=== PATIENT | male | born 1985 | race Two or more races ===

== ENCOUNTER 2019-01-02 10:01 | Inpatient (IN) | payer OTHER ==
[2019-01-02 11:05] VITALS: BMI 25.5
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
[2019-01-02] MEDS ORDERED: MELATONIN 5 MG TABLETS PO PRN (11:39)
[2019-01-02] MEDS ORDERED: BISMUTH SUBSALICYLATE 524 MG/30 ML UD PO PRN (11:39)
[2019-01-02] MEDS ORDERED: chlordiazePOXIDE HCL 25 MG CAPSULE PO PRN (11:39)
[2019-01-02] MEDS ORDERED: MAG HYDROX/AL HYDROX/SIMETH 30 ML UNIT-DOSE CUP PO PRN (11:39)
[2019-01-02] MEDS ORDERED: NICOTINE POLACRILEX 4 MG GUM BUC PRN (11:39)
[2019-01-02] MEDS ORDERED: MAGNESIUM CITRATE 300 ML BOTTLE PO PRN (11:39)
[2019-01-02] MEDS ORDERED: QUEtiapine FUMARATE 50 MG TABLET PO PRN (11:39)
[2019-01-02] MEDS ORDERED: MENTHOL/PHENOL 1 EACH UD MM PRN (11:39)
[2019-01-02] MEDS ORDERED: ACETAMINOPHEN 325 MG TABLET (FP) PO PRN ×2 (11:39)
[2019-01-02] MEDS ORDERED: MAGNESIUM HYDROX 2400MG/30ML ORAL SUSPENSION 30 ML CUP PO PRN (11:39)
[2019-01-02] MEDS ORDERED: ALBUTEROL SO4 8 GM HFA INHALER IH PRN (11:40)
[2019-01-02] MEDS ORDERED: chlordiazePOXIDE HCL 25 MG CAPSULE PO ONE (12:30)
[2019-01-02] MEDS ORDERED: METHADONE HCL 10 MG TABLET (FOR DETOX USE ONLY) PO ONE (12:30)
[2019-01-02] MEDS: METHOCARBAMOL 500 MG TABLET PO PRN ×2 (12:51→22:06)
[2019-01-02] MEDS: BUDESONIDE/FORMETEROL FUMARATE 80/4.5 mcg INHALER IH SCH ×2 (12:55→22:05)
[2019-01-02] MEDS: chlordiazePOXIDE HCL 25 MG CAPSULE PO SCH ×2 (17:42→22:05)
[2019-01-02] MEDS: THIAMINE HCL 100 MG TABLET (FP) PO SCH (22:05)
[2019-01-03] MEDS: cloNIDine HCL 0.1 MG TABLET PO PRN ×2 (01:00→18:58)
[2019-01-03] MEDS: chlordiazePOXIDE HCL 25 MG CAPSULE PO SCH ×4 (05:38→22:20)
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
[2019-01-03] MEDS ORDERED: METHADONE HCL 5 MG TABLET (FOR DETOX USE ONLY) ONE (08:59)
[2019-01-03] MEDS ORDERED: METHADONE HCL 10 MG TABLET (FOR DETOX USE ONLY) ONE (08:59)
[2019-01-03] MEDS ORDERED: METHADONE (DETOX) 20 MG, METHADONE (DETOX) 5 MG PO ONE (10:00)
[2019-01-03] MEDS: BUDESONIDE/FORMETEROL FUMARATE 80/4.5 mcg INHALER IH SCH ×2 (10:16→22:20)
[2019-01-03] MEDS: METHOCARBAMOL 500 MG TABLET PO PRN ×2 (10:17→17:05)
[2019-01-03] MEDS: PRENATAL VITAMINS W/ FOLIC ACID TABLET (FP) PO SCH (10:17)
[2019-01-03 11:00] LABS: HEMATOCRIT 37.1 % (35.4-49); HEMOGLOBIN 12.6 GM/dL (11.7-16.9); MCH 29.9 pg (25.7-33.7); MCHC 33.9 g/dl (32.0-35.9); MEAN CELL VOLUME 88.3 fl (80-96); MEAN PLT VOLUME 9.2 fl (7.5-11.1); PLATELET COUNT 318 K/MM3 (134-434); RBC 4.21 M/mm3 (4.00-5.60); RDW 12.7 % (11.9-15.9); WHITE BLOOD COUNT 8.9 K/mm3 (4.0-10.0)
[2019-01-03 11:11] LABS: ALBUMIN 3.2 g/dl (3.4-5.0); BILIRUBIN,TOTAL 0.4 mg/dL (0.2-1); BLOOD UREA NITROGEN 9.2 mg/dL (7-18); CALCIUM 9.1 mg/dL (8.5-10.1); CREATININE 0.8 mg/dL (0.55-1.3); POTASSIUM 3.7 mmol/L (3.5-5.1); TOT PROT 6.6 g/dl (6.4-8.2)
--- NOTE | 2019-01-03 11:13 | PN ---
S CIWA - CIWA Score Nausea/Vomitin-Mild Nausea/No Vomiting Muscle Tremors: 4-Moderate,w/Arms Extend Anxiety: 3 Agitation: 2 Paroxysmal Sweats: 2 Orientation: 0-Oriented Tacttile Disturbances: 1-Very Mild Itch/Numbness Auditory Disturbances: 0-None Visual Disturbances: 0-None Headache: 0-None Present CIWA-Ar Total Score: 13 [facility] COWS - Scale Resting Pulse: 0= [place] 80 or Below Sweatin= Chills/Flushing Restless Observation: 0= Sits Still Pupil Size: 1= Pupils >than Normal Bone or Joint Aches: 1= Mild Discomfort Runny Nose/ Eye Tearin= Nasal Congestion GI Upset > 30mins: 1= Stomach Cramp Tremor Observation of Outstretched Hands: 2= Slight Tremor Visible Yawning Observation: 1= 1-2x During Session Anxiety or Irritability: 2=Irritable/Anxious Goose Flesh Skin: 3=Piloerection COWS Score: 13 S Progress Note (SOAP) Subjective: 33 years old male admitted on 01/02/19 for alcohol benzo opiate withdrawal sx management treated with librium and methadone detox regimen patient tolerated wel ate breakfast resting on bed feeling tired limited conversation with staff Objective: 01/03/19 11:12 Vital Signs Temperature 96.8 F L 01/03/19 09:43 Pulse Rate 78 01/03/19 09:43 Respiratory Rate 18 01/03/19 09:43 Blood Pressure 130/82 01/03/19 09:43 O2 Sat by Pulse Oximetry (%) Laboratory Last Values WBC 8.9 K/mm3 (4.0-10.0) 01/03/19 07:40 RBC 4.21 M/mm3 (4.00-5.60) 01/03/19 07:40 Hgb 12.6 GM/dL (11.7-16.9) 01/03/19 07:40 Hct 37.1 % (35.4-49) 01/03/19 07:40 MCV 88.3 fl (80-96) 01/03/19 07:40 MCH 29.9 pg (25.7-33.7) 01/03/19 07:40 MCHC 33.9 g/dl (32.0-35.9) 01/03/19 07:40 RDW 12.7 % (11.9-15.9) 01/03/19 07:40 Plt Count 318 K/MM3 (134-434) 01/03/19 07:40 MPV 9.2 fl (7.5-11.1) 01/03/19 07:40 Sodium 139 mmol/L (136-145) 01/03/19 07:40 Potassium 3.7 mmol/L (3.5-5.1) 01/03/19 07:40 Chloride 106 mmol/L (98-107) 01/03/19 07:40 Carbon Dioxide 25 mmol/L (21-32) 01/03/19 07:40 Anion Gap 7 MMOL/L (8-16) L 01/03/19 07:40 BUN 9.2 mg/dL (7-18) 01/03/19 07:40 Creatinine 0.8 mg/dL (0.55-1.3) 01/03/19 07:40 Est GFR (CKD-EPI)AfAm 134.14 01/03/19 07:40 Est GFR (CKD-EPI)NonAf 115.74 01/03/19 07:40 Random Glucose 118 mg/dL (74-106) H 01/03/19 07:40 Calcium 9.1 mg/dL (8.5-10.1) 01/03/19 07:40 Total Bilirubin 0.4 mg/dL (0.2-1) 01/03/19 07:40 AST 10 U/L (15-37) L 01/03/19 07:40 ALT 19 U/L (13-61) 01/03/19 07:40 Alkaline Phosphatase 81 U/L (45-117) 01/03/19 07:40 Total Protein 6.6 g/dl (6.4-8.2) 01/03/19 07:40 Albumin 3.2 g/dl (3.4-5.0) L 01/03/19 07:40 lab noted Assessment: 01/03/19 11:12 alcohol benzo opiate withdrawal sx Plan: continue librium and methadone detox regimen
[2019-01-03] MEDS: IBUPROFEN 400 MG TABLET (FP) PO PRN ×2 (16:52→22:56)
[2019-01-03] MEDS ORDERED: SUVOREXANT 10 MG TABLET PO PRN (22:00)
[2019-01-03] MEDS: THIAMINE HCL 100 MG TABLET (FP) PO SCH (22:20)
[2019-01-04] MEDS: METHOCARBAMOL 500 MG TABLET PO PRN ×2 (05:46→12:30)
[2019-01-04] MEDS: chlordiazePOXIDE HCL 25 MG CAPSULE PO SCH ×2 (05:47→10:02)
[2019-01-04] MEDS ORDERED: METHADONE HCL 10 MG TABLET (FOR DETOX USE ONLY) PO ONE (10:00)
[2019-01-04] MEDS: BUDESONIDE/FORMETEROL FUMARATE 80/4.5 mcg INHALER IH SCH (10:01)
[2019-01-04] MEDS: PRENATAL VITAMINS W/ FOLIC ACID TABLET (FP) PO SCH (10:02)
[2019-01-04] MEDS: IBUPROFEN 400 MG TABLET (FP) PO PRN (12:30)
--- NOTE | 2019-01-04 13:03 | PN ---
[facility] CIWA - CIWA Score Nausea/Vomitin-Mild Nausea/No Vomiting Muscle Tremors: 3 Anxiety: 3 Agitation: 1-Slight > Activity Paroxysmal Sweats: 2 Orientation: 1-Uncertain about Date Tacttile Disturbances: 0-None Auditory Disturbances: 0-None Visual Disturbances: 0-None Headache: 0-None Present CIWA-Ar Total Score: 11 S COWS - Scale Resting Pulse: 0= [place] 80 or Below Sweatin= Chills/Flushing Restless Observation: 0= Sits Still Pupil Size: 1= Pupils >than Normal Bone or Joint Aches: 2= Severe Diffuse Aches Runny Nose/ Eye Tearin= Nasal Congestion GI Upset > 30mins: 2= Nausea/Diarrhea (no diarrhea) Tremor Observation of Outstretched Hands: 2= Slight Tremor Visible Yawning Observation: 0= None Anxiety or Irritability: 2=Irritable/Anxious Goose Flesh Skin: 0=Smooth Skin COWS Score: 11 [facility] Progress Note (SOAP) Subjective: 33 years old male admitted on 01/02/19 for alcohol benzo opiate withdrawal sx management treated with librium and methadone detox regimen
--- NOTE | 2019-01-04 13:07 | DS ---
[facility] Detox Discharge Summary Admission Date: 01/02/19 Discharge Date: 01/04/19 - History Present History: Alcohol Dependence, Opioid Dependence, Sedative Dependence Additional Comments: 33 years old male admitted on 01/02/19 for alcohol benzo opiate withdrawal sx management treated with librium and methadone detox regimen PATIENT IS ALERT ORIENTED X 3 SPEECH CLEARLY COHERENTLY PATIENT INSISTS TO LEAVE THE DETOX UNIT WITH A FEMALE PEER REFUSES CIWA COWS REFUSE EXIST PHYSICAL EXAMINATION - Physical Exam Results Vital Signs: Vital Signs Temperature 97.1 F L 01/04/19 09:42 Pulse Rate 64 01/04/19 09:42 Respiratory Rate 18 01/04/19 09:42 Blood Pressure 119/70 01/04/19 09:42 O2 Sat by Pulse Oximetry (%) Pertinent Admission Physical Exam Findings: ALCOHOL BENZO OPIATE WITHDRAWAL SX Laboratory Last Values WBC 8.9 K/mm3 (4.0-10.0) 01/03/19 07:40 RBC 4.21 M/mm3 (4.00-5.60) 01/03/19 07:40 Hgb 12.6 GM/dL (11.7-16.9) 01/03/19 07:40 Hct 37.1 % (35.4-49) 01/03/19 07:40 MCV 88.3 fl (80-96) 01/03/19 07:40 MCH 29.9 pg (25.7-33.7) 01/03/19 07:40 MCHC 33.9 g/dl (32.0-35.9) 01/03/19 07:40 RDW 12.7 % (11.9-15.9) 01/03/19 07:40 Plt Count 318 K/MM3 (134-434) 01/03/19 07:40 MPV 9.2 fl (7.5-11.1) 01/03/19 07:40 Sodium 139 mmol/L (136-145) 01/03/19 07:40 Potassium 3.7 mmol/L (3.5-5.1) 01/03/19 07:40 Chloride 106 mmol/L (98-107) 01/03/19 07:40 Carbon Dioxide 25 mmol/L (21-32) 01/03/19 07:40 Anion Gap 7 MMOL/L (8-16) L 01/03/19 07:40 BUN 9.2 mg/dL (7-18) 01/03/19 07:40 Creatinine 0.8 mg/dL (0.55-1.3) 01/03/19 07:40 Est GFR (CKD-EPI)AfAm 134.14 01/03/19 07:40 Est GFR (CKD-EPI)NonAf 115.74 01/03/19 07:40 Random Glucose 118 mg/dL (74-106) H 01/03/19 07:40 Calcium 9.1 mg/dL (8.5-10.1) 01/03/19 07:40 Total Bilirubin 0.4 mg/dL (0.2-1) 01/03/19 07:40 AST 10 U/L (15-37) L 01/03/19 07:40 ALT 19 U/L (13-61) 01/03/19 07:40 Alkaline Phosphatase 81 U/L (45-117) 01/03/19 07:40 Total Protein 6.6 g/dl (6.4-8.2) 01/03/19 07:40 Albumin 3.2 g/dl (3.4-5.0) L 01/03/19 07:40 RPR Titer Nonreactive (NONREACTIVE) 01/03/19 07:40 LAB NOTED - Treatment Hospital Course: Detox Protocol Followed, Responded well Patient has Accepted a Rehab Referral to: MEDICATION ASISSTED TREATEMENT - Medication Discharge Medications: Ambulatory Orders Ibuprofen [Motrin -] 400 mg PO BID PRN 12/31/18 Methocarbamol [Robaxin -] 500 mg PO BID PRN 12/31/18 Albuterol Sulfate Inhaler - [Ventolin Hfa Inhaler -] 2 inh PO Q4H PRN 01/02/19 Budesonide/Formeterol Fumarate [SYMBICORT 80/4.5mcg -] 1 inh PO BID 01/02/19 Naloxone HCl [Narcan] 4 mg NS ASDIR PRN #1 spray 01/04/19 - Diagnosis (1) Alcohol dependence with withdrawal, uncomplicated Current Visit: Yes Status: Acute (2) Opioid dependence with withdrawal Current Visit: Yes Status: Acute (3) Sedative hypnotic or anxiolytic dependence Current Visit: Yes Status: Acute (4) Substance induced mood disorder Current Visit: Yes Status: Suspected (5) Asthma Current Visit: Yes Status: Chronic Qualifiers: Asthma severity: mild Asthma persistence: intermittent Asthma complication type: uncomplicated Qualified Code(s): J45.20 - Mild intermittent asthma, uncomplicated (6) Nicotine dependence Current Visit: Yes Status: Acute Qualifiers: Nicotine product type: cigarettes Substance use status: in withdrawal Qualified Code(s): F17.213 - Nicotine dependence, cigarettes, with withdrawal - AMA Did Patient Leave Against Medical Advice: Yes
[2019-01-04 13:09] VITALS: BP 121/81; PULSE 76; TEMP 97
[2019-01-05] MEDS ORDERED: chlordiazePOXIDE HCL 10 MG CAPSULE PO PRN
[2019-01-05] MEDS ORDERED: chlordiazePOXIDE HCL 10 MG CAPSULE PO SCH (05:00)
[2019-01-05] MEDS ORDERED: METHADONE (DETOX) 10 MG, METHADONE (DETOX) 5 MG PO ONE (10:00)
[2019-01-06] MEDS ORDERED: chlordiazePOXIDE HCL 10 MG CAPSULE PO SCH (05:00)
[2019-01-06] MEDS ORDERED: METHADONE HCL 10 MG TABLET (FOR DETOX USE ONLY) PO ONE (10:00)
[2019-01-07] MEDS ORDERED: chlordiazePOXIDE HCL 10 MG CAPSULE PO ONE (05:00)
[2019-01-07] MEDS ORDERED: METHADONE HCL 5 MG TABLET (FOR DETOX USE ONLY) PO ONE (06:00)
== END 2019-01-04 13:31 | disposition left against medical advice (07) | DRG 770 ==
LOC: YASAS 10:01 → Y3N 11:52
PROVIDERS: ADMIT Allergy & Immunology; ATTEND Allergy & Immunology
PROC: HZ2ZZZZ Detoxification Services for Substance Abuse Treatment (ICD-10-PCS; principal; 2019-01-02)
DX: F10.230 Alcohol dependence with withdrawal, uncomplicated (principal); F11.23 Opioid dependence with withdrawal; F13.230 Sedative, hypnotic or anxiolytic dependence with withdrawal, uncomplicated; F14.20 Cocaine dependence, uncomplicated; F12.20 Cannabis dependence, uncomplicated; F17.213 Nicotine dependence, cigarettes, with withdrawal; F19.282 Other psychoactive substance dependence with psychoactive substance-induced sleep disorder; F19.24 Other psychoactive substance dependence with psychoactive substance-induced mood disorder; F31.9 Bipolar disorder, unspecified; F41.9 Anxiety disorder, unspecified; J45.20 Mild intermittent asthma, uncomplicated; M54.5 Low back pain; G89.29 Other chronic pain
CPT/HCPCS: 36415; 80053; 85027; 86593; J0735

== ENCOUNTER 2019-11-10 08:49 | Inpatient (IN) | payer OTHER ==
--- NOTE | 2019-11-10 09:03 | BHS.RME ---
Substance Use & Tx History - Substance Use History Alcohol Substance amount: 4-5 - 20 oz beers Frequency of use: Daily Substance route: Oral Date of Last Use: 11/10/19 (started age 15) Heroin Substance amount: 6-7 bags Frequency of use: Daily Substance route: Inhalation (ex: sniffing or snorting) Date of Last Use: 11/10/19 (started age 2 weeks ago) Nicotine Substance amount: 1/2 pack Frequency of use: Daily Substance route: Smoking Date of Last Use: 11/10/19 Physical/Psych/Mental Status - Behavior General Behavior: Increased activity (restlessness, agitation) Eye Contact: Normal - Cooperativeness Cooperativeness: Cooperative - Thinking Thought Processes: Tight, Logical, Goal Directed - Physical Health Problems Is patient presently having any pain?: No Does patient presently have any injuries (include location): No Does patient currently have a fever: No Is patient : No COWS - Scale Resting Pulse: 1= [place] 81-100 Sweatin= No chills or Flushing Restless Observation: 0= Sits Still Pupil Size: 0= Normal to Room Light Bone or Joint Aches: 1= Mild Discomfort Runny Nose/ Eye Tearin= None GI Upset > 30mins: 0= None Tremor Observation: 1= Tremor Babb, Not Seen Yawning Observation: 1= 1-2x During Session Anxiety or Irritability: 1=Feels Anxious/Irritable Goose Flesh Skin: 0=Smooth Skin COWS Score: 5 CIWA Nausea/Vomitin Muscle Tremors: 1-None Visible, but Babb Anxiety: 1-Mildly Anxious Agitation: 1-Slight > Activity Paroxysmal Sweats: No Perspiration Orientation: 1-Uncertain about Date Tacttile Disturbances: 0-None Auditory Disturbances: 0-None Visual Disturbances: 0-None Headache: 2-Mild CIWA-Ar Total Score: 8
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
[2019-11-10 09:45] VITALS: BMI 25.4
[2019-11-10] MEDS ORDERED: cloNIDine HCL 0.1 MG TABLET PO PRN (09:49)
[2019-11-10] MEDS ORDERED: MAGNESIUM CITRATE 300 ML BOTTLE PO PRN (09:49)
[2019-11-10] MEDS ORDERED: MAG HYDROX/AL HYDROX/SIMETH 30 ML UNIT-DOSE CUP PO PRN (09:49)
[2019-11-10] MEDS ORDERED: chlordiazePOXIDE HCL 25 MG CAPSULE PO PRN (09:49)
[2019-11-10] MEDS ORDERED: ACETAMINOPHEN 325 MG TABLET (FP) PO PRN ×2 (09:49)
[2019-11-10] MEDS ORDERED: METHOCARBAMOL 500 MG TABLET PO PRN (09:49)
[2019-11-10] MEDS ORDERED: IBUPROFEN 400 MG TABLET (FP) PO PRN ×2 (09:49→14:15)
[2019-11-10] MEDS ORDERED: MENTHOL/PHENOL 1 EACH UD MM PRN (09:49)
[2019-11-10] MEDS ORDERED: NICOTINE POLACRILEX 2 MG GUM BUC PRN (09:49)
[2019-11-10] MEDS ORDERED: ONDANSETRON *ODT* 4 MG TABLET SL PRN (09:49)
[2019-11-10] MEDS ORDERED: BISMUTH SUBSALICYLATE 262 MG/15 ML BTL PO PRN (09:49)
[2019-11-10] MEDS ORDERED: MAGNESIUM HYDROX 2400MG/30ML ORAL SUSPENSION 30 ML CUP PO PRN (09:49)
[2019-11-10] MEDS ORDERED: METHADONE HCL 10 MG TABLET (FOR DETOX USE ONLY) PO ONE (10:00)
[2019-11-10] MEDS ORDERED: hydrOXYzine PAMOATE 25 MG CAPSULE (FP) PO SCH (10:00)
[2019-11-10] MEDS: chlordiazePOXIDE HCL 25 MG CAPSULE PO SCH ×2 (11:07→19:01)
[2019-11-10] MEDS: NICOTINE 14 MG/24 HOURS TOPICAL PATCH TD SCH (11:09)
[2019-11-10] MEDS: PRENATAL VITAMINS W/ FOLIC ACID TABLET (FP) PO SCH (11:11)
[2019-11-10] MEDS ORDERED: ALBUTEROL SO4 HFA INHALER IH PRN ×2 (11:15→13:26)
[2019-11-10 13:16] LABS: HEMATOCRIT 36.8 % (35.4-49); HEMOGLOBIN 12.7 GM/dL (11.7-16.9); MCHC 34.6 g/dl (32.0-35.9); MEAN CELL VOLUME 89.6 fl (80-96); MEAN PLT VOLUME 10.3 fl (7.5-11.1); PLATELET COUNT 273 K/MM3 (134-434); RBC 4.11 M/mm3 (4.00-5.60); RDW 14.1 % (11.9-15.9)
[2019-11-10] MEDS: MUPIROCIN CA 2% TOPICAL CREAM 15 GM TUBE TP SCH (13:27)
[2019-11-10] MEDS ORDERED: hydrOXYzine PAMOATE 25 MG CAPSULE (FP) PO PRN (13:27)
[2019-11-10 13:29] LABS: ALBUMIN 3.4 g/dl (3.4-5.0); BILIRUBIN,TOTAL 0.2 mg/dL (0.2-1); BLOOD UREA NITROGEN 7.5 mg/dL (7-18); CALCIUM 8.7 mg/dL (8.5-10.1); CREATININE 0.6 mg/dL (0.55-1.3); POTASSIUM 3.5 mmol/L (3.5-5.1); TOT PROT 7.9 g/dl (6.4-8.2)
[2019-11-10] MEDS: BUDESONIDE/FORMETEROL FUMARATE 80/4.5 mcg INHALER IH SCH (13:36)
--- NOTE | 2019-11-10 13:56 | EKG ---
Test Reason : Blood Pressure : / mmHG Vent. Rate : 088 BPM Atrial Rate : 088 BPM P-R Int : 162 ms QRS Dur : 090 ms QT Int : 380 ms P-R-T Axes : 033 026 037 degrees QTc Int : 459 ms NORMAL SINUS RHYTHM NORMAL ECG NO PREVIOUS ECGS AVAILABLE Confirmed by Mann Pérez ([id number]) on 11/10/2019 1:55:52 PM Referred By: Confirmed By:Mann Pérez
[2019-11-10] MEDS: GABAPENTIN 300 MG CAPSULE PO SCH (14:06)
[2019-11-10] MEDS ORDERED: LIDOCAINE VISCOUS 2% ORAL/TOP 20 ML UNIT-DOSE CUP MM PRN (14:14)
--- NOTE | 2019-11-10 14:16 | PN ---
[facility] Progress Note Note: pt c/o toothache stating the filling came out. lidocaine s/s ordered motrin 800mg prn ordered
[2019-11-10] MEDS ORDERED: MELATONIN 5 MG TABLETS PO SCH (22:00)
[2019-11-10] MEDS ORDERED: THIAMINE HCL 100 MG TABLET (FP) PO SCH (22:00)
[2019-11-11] MEDS: MUPIROCIN CA 2% TOPICAL CREAM 15 GM TUBE TP SCH ×2 (00:23→10:10)
[2019-11-11] MEDS: chlordiazePOXIDE HCL 25 MG CAPSULE PO SCH ×3 (00:23→10:10)
[2019-11-11] MEDS: GABAPENTIN 300 MG CAPSULE PO SCH ×2 (00:23→06:52)
[2019-11-11] MEDS: BUDESONIDE/FORMETEROL FUMARATE 80/4.5 mcg INHALER IH SCH (00:23)
[2019-11-11] MEDS ORDERED: METHADONE HCL 5 MG TABLET (FOR DETOX USE ONLY) ONE (08:32)
[2019-11-11] MEDS ORDERED: METHADONE HCL 10 MG TABLET (FOR DETOX USE ONLY) ONE (08:33)
[2019-11-11] MEDS ORDERED: METHADONE (DETOX) 20 MG, METHADONE (DETOX) 5 MG PO ONE (10:00)
[2019-11-11] MEDS: PRENATAL VITAMINS W/ FOLIC ACID TABLET (FP) PO SCH (10:12)
[2019-11-11] MEDS: NICOTINE 14 MG/24 HOURS TOPICAL PATCH TD SCH (10:13)
[2019-11-11 10:51] VITALS: BP 122/64; PULSE 63; TEMP 96.8
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
--- NOTE | 2019-11-11 14:33 | PN ---
[facility] Progress Note Note: pt states he does not want to be here and wants to go to a different facility. Pt was encouraged to stay and he will get the right treatment required to him and will see the psych for his mental illness, however pt insisted on leaving. Pt was also made aware of the risks of relapse, seizures, DT, OD and or loss, pt chose to sign out AMA.
--- NOTE | 2019-11-11 14:35 | DS ---
[facility] Detox Discharge Summary Admission Date: 11/10/19 - History Present History: Alcohol Dependence, Cannabis Dependence, Cocaine Dependence, Opioid Dependence, Sedative Dependence - Physical Exam Results Vital Signs: Vital Signs Temperature 96.8 F L 11/11/19 09:17 Pulse Rate 63 11/11/19 09:17 Respiratory Rate 18 11/11/19 09:17 Blood Pressure 122/64 11/11/19 09:17 O2 Sat by Pulse Oximetry (%) 99 11/11/19 09:17 Pertinent Admission Physical Exam Findings: Vital Signs Temperature 96.8 F L 11/11/19 09:17 Pulse Rate 63 11/11/19 09:17 Respiratory Rate 18 11/11/19 09:17 Blood Pressure 122/64 11/11/19 09:17 O2 Sat by Pulse Oximetry (%) 99 11/11/19 09:17 Laboratory Tests 11/10/19 11/10/19 11/10/19 09:35 09:35 09:35 WBC 7.0 RBC 4.11 Hgb 12.7 Hct 36.8 MCV 89.6 MCH 31.0 MCHC 34.6 RDW 14.1 Plt Count 273 MPV 10.3 Sodium 139 Potassium 3.5 Chloride 105 Carbon Dioxide 26 Anion Gap 9 BUN 7.5 Creatinine 0.6 Est GFR (CKD-EPI)AfAm 149.92 Est GFR (CKD-EPI)NonAf 129.35 Random Glucose 131 H Calcium 8.7 Total Bilirubin 0.2 AST 79 H ALT 143 H Alkaline Phosphatase 110 Total Protein 7.9 Albumin 3.4 Syphilis Serology Non-reactive HIV Ag/Ab Combo Qual 11/10/19 13:00 WBC RBC Hgb Hct MCV MCH MCHC RDW Plt Count MPV Sodium Potassium Chloride Carbon Dioxide Anion Gap BUN Creatinine Est GFR (CKD-EPI)AfAm Est GFR (CKD-EPI)NonAf Random Glucose Calcium Total Bilirubin AST ALT Alkaline Phosphatase Total Protein Albumin Syphilis Serology HIV Ag/Ab Combo Qual Negative aaox3 ambulating no acute distress pt signed out AMA. - Treatment Patient has Accepted a Rehab Referral to: pt refused aftercare/referral - Medication Discharge Medications: Ambulatory Orders Ibuprofen [Motrin -] 400 mg PO BID PRN 12/31/18 Albuterol Sulfate Inhaler - [Ventolin Hfa Inhaler -] 2 inh PO Q4H PRN 01/02/19 Budesonide/Formeterol Fumarate [SYMBICORT 80/4.5mcg -] 1 inh PO BID 01/02/19 Naloxone HCl [Narcan] 4 mg NS ASDIR PRN #1 spray 01/04/19 Cyclobenzaprine HCl [Flexeril -] 10 mg PO TID 11/10/19 Gabapentin 300 mg PO TID 11/10/19 Quetiapine Fumarate [Seroquel -] 200 mg PO HS 11/10/19 - Diagnosis (1) Alcohol dependence with withdrawal, uncomplicated Status: Chronic (2) Opioid dependence with withdrawal Status: Chronic (3) 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 (4) Substance-induced sleep disorder Status: Acute (5) Asthma Status: Chronic Qualifiers: Asthma severity: mild Asthma persistence: intermittent Asthma complication type: uncomplicated Qualified Code(s): J45.20 - Mild intermittent asthma, uncomplicated (6) Back pain Status: Chronic Qualifiers: Back pain location: low back pain Chronicity: chronic Back pain laterality: bilateral Sciatica presence: without sciatica Qualified Code(s): M54.5 - Low back pain; G89.29 - Other chronic pain (7) Cannabis dependence Status: Chronic (8) Cocaine dependence Status: Chronic Qualifiers: Substance use status: uncomplicated Qualified Code(s): F14.20 - Cocaine dependence, uncomplicated (9) Hepatitis C Status: Chronic (10) Nicotine dependence Status: Chronic Qualifiers: Nicotine product type: cigarettes Substance use status: uncomplicated Qualified Code(s): F17.210 - Nicotine dependence, cigarettes, uncomplicated (11) Opioid dependence on agonist therapy Status: Chronic (12) Substance induced mood disorder Status: Chronic (13) Substance induced mood disorder Status: Suspected (14) Bipolar disorder Status: Ruled-out - AMA Did Patient Leave Against Medical Advice: Yes
[2019-11-12] MEDS ORDERED: chlordiazePOXIDE HCL 25 MG CAPSULE PO SCH (05:00)
[2019-11-12] MEDS ORDERED: METHADONE HCL 10 MG TABLET (FOR DETOX USE ONLY) PO ONE (10:00)
[2019-11-13] MEDS ORDERED: chlordiazePOXIDE HCL 10 MG CAPSULE PO PRN
[2019-11-13] MEDS ORDERED: chlordiazePOXIDE HCL 10 MG CAPSULE PO SCH (05:00)
[2019-11-13] MEDS ORDERED: METHADONE (DETOX) 10 MG, METHADONE (DETOX) 5 MG PO ONE (10:00)
[2019-11-14] MEDS ORDERED: chlordiazePOXIDE HCL 10 MG CAPSULE PO SCH (05:00)
[2019-11-14] MEDS ORDERED: METHADONE HCL 10 MG TABLET (FOR DETOX USE ONLY) PO ONE (10:00)
[2019-11-15] MEDS ORDERED: chlordiazePOXIDE HCL 10 MG CAPSULE PO ONE (05:00)
[2019-11-15] MEDS ORDERED: METHADONE HCL 5 MG TABLET (FOR DETOX USE ONLY) PO ONE (06:00)
== END 2019-11-11 11:29 | disposition left against medical advice (07) | DRG 770 ==
LOC: YASAS 08:49 → Y6N 10:29
PROVIDERS: ADMIT Allergy & Immunology; ATTEND Allergy & Immunology
PROC: HZ2ZZZZ Detoxification Services for Substance Abuse Treatment (ICD-10-PCS; principal; 2019-11-10)
DX: F10.230 Alcohol dependence with withdrawal, uncomplicated (principal); F11.23 Opioid dependence with withdrawal; F14.20 Cocaine dependence, uncomplicated; F13.20 Sedative, hypnotic or anxiolytic dependence, uncomplicated; F12.20 Cannabis dependence, uncomplicated; F17.210 Nicotine dependence, cigarettes, uncomplicated; F19.282 Other psychoactive substance dependence with psychoactive substance-induced sleep disorder; F19.24 Other psychoactive substance dependence with psychoactive substance-induced mood disorder; J45.20 Mild intermittent asthma, uncomplicated; M54.41 Lumbago with sciatica, right side; M54.42 Lumbago with sciatica, left side; G89.29 Other chronic pain; B18.2 Chronic viral hepatitis C; K08.89 Other specified disorders of teeth and supporting structures; Z91.013 Allergy to seafood; Z56.0 Unemployment, unspecified; Z59.0 Homelessness
CPT/HCPCS: 36415; 80053; 85027; 86780; 87389; 93005; 93010; U0003